=== PATIENT | female | born 1940 | race Caucasian/White ===

== ENCOUNTER 2017-04-27 09:55 | Emergency (ER) | payer OTHER ==
[~2017-04-27] VITALS: Ht 152.4 cm; Wt 60.0 kg
[2017-04-27 10:16] VITALS: BP 173/84; PULSE 90; RESP 20; TEMP 98.2; O2SAT 100
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
[2017-04-27] MEDS ORDERED: FENO1TAB76 PO (10:40)
[2017-04-27] MEDS ORDERED: CELE10TA PO (10:40)
[2017-04-27] MEDS ORDERED: PRED10 PO (10:40)
[2017-04-27] MEDS ORDERED: [UNRECOGNIZED DRUG - OTHER] PO (10:40)
[2017-04-27] MEDS ORDERED: OPAN5TAB PO (10:40)
[2017-04-27] MEDS ORDERED: THEO1CAP PO (10:40)
[2017-04-27] MEDS ORDERED: MONT5CHW2 CHEW (10:40)
[2017-04-27] MEDS ORDERED: KETOROLAC TROMETHAMINE 60 MG/2 ML (IM) VIAL IM ONE (11:00)
[2017-04-27 11:01] VITALS: BP 145/79; PULSE 88; RESP 20; O2SAT 97
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
[2017-04-27 11:47] VITALS: BP 140/81; PULSE 87; RESP 20; O2SAT 98
[2017-04-27 12:56] VITALS: BP 136/82; PULSE 87; RESP 20; O2SAT 98
== END 2017-04-27 12:57 | disposition home or self-care (01) ==
LOC: PHED 09:55
DX: S12.101A Unspecified nondisplaced fracture of second cervical vertebra, initial encounter for closed fracture (principal); M50.30 Other cervical disc degeneration, unspecified cervical region; G89.29 Other chronic pain; M79.7 Fibromyalgia; M25.78 Osteophyte, vertebrae; E78.00 Pure hypercholesterolemia, unspecified; V48.6XXA Car passenger injured in noncollision transport accident in traffic accident, initial encounter; Y92.410 Unspecified street and highway as the place of occurrence of the external cause; Z79.899 Other long term (current) drug therapy
CPT/HCPCS: 70450; 72020; 72125; 96372; 99285; J1885; L0120